=== PATIENT | male | born 1930 | race Caucasian/White ===

== ENCOUNTER → 2016-05-08 | Outpatient (REF) | payer OTHER | LOC: M SMT 13:06 | PROVIDERS: ATTEND Nurse Practitioner Women's Health | DX: N40.1 Benign prostatic hyperplasia with lower urinary tract symptoms (principal) | CPT/HCPCS: 51798; 81001; 87086; G0463 ==

== ENCOUNTER → 2016-07-08 | Day surgery (SDC) | payer OTHER ==
[~2016-07-08] VITALS: Ht 171.4 cm; Wt 90.7 kg
[~2016-07-08] MED LIST: ASPI1TAB PO; BACITRACIN OINT 30GM As Ordered ONE; BUPIVACAINE HCL 0.25% 30 ML VIAL As Ordered ONE; CIAL5TAB PO; FLOM5CAP PO; GLUC850T PO; HYDROmorphone HCL 2 MG/ML 1ML VIAL (J1170) As Ordered ONE; KEFL500C7 PO; LIDOCAINE 1% SDV INJ 30 ML VIAL As Ordered ONE; LIDOCAINE 2% INJ 100 MG/5 ML SDV (FOR ANES.) As Ordered ONE; LR 1,000 ML IV SCH; METF1000 PO; METF500T PO; METO-209 PO; METOCLOPRAMIDE INJ 10MG/2ML VIAL (J2765) IV PRN; MIDAZOLAM INJ 2 MG/2 ML VIAL (J2250) As Ordered ONE; OMEP20CA3 PO; ONDANSETRON 4MG/2ML VIAL (J2405) IV PRN; PERCOCET 5MG/325MG TAB PO PRN; PHENYLephrine HCL 500 MCG/5 ML (100MCG/ML) SYRINGE (J2370) As Ordered ONE; PROPOFOL 200 MG/20 ML VIAL As Ordered ONE; SIMV80TA PO; TEST5GEL TOP; TYLE650T35 PO; ePHEDrine SULFATE 25 MG/5 ML(5MG/ML) SYRINGE As Ordered ONE; fentaNYL 100 MCG/2 ML INJECTION (J3010) As Ordered ONE; fentaNYL 100 MCG/2 ML INJECTION (J3010) IV PRN
[2016-07-08] MEDS: LR 1,000 ML IV SCH ×2 (08:50→08:58)
[2016-07-08 14:00] VITALS: BP 184/82
--- NOTE | 2016-07-09 09:15 | RO ---
DATE OF SURGERY: 07/08/2016 PREOPERATIVE DIAGNOSIS: Phimosis. POSTOPERATIVE DIAGNOSIS: Phimosis. FINDINGS: Phimosis. SURGERY PERFORMED: Circumcision. SURGEON: Justice Huggins MD [employer]: Pedro Eid, PGY3, Resident ANESTHESIA: General. COMPLICATIONS: None. ESTIMATED BLOOD LOSS (EBL): N/A. HISTORY OF PRESENT ILLNESS: An 85-year-old male patient who has a phimosis and cannot retract the skin. For this reason, he has consented for a circumcision. PROCEDURE DESCRIPTION: In a patient under general anesthesia in supine position , after prepping and draping the area of concern, which included the entire genitalia, we placed local penile block with Marcaine 0.25% and lidocaine 1%, a total of 10 mL, around the base of the penis. We then proceeded to actually grab a hemostat and clamp the dorsal part of the foreskin from the tip of the distal end. We then cut and did a dorsal slit to actually retract the foreskin and expose the glans. We then proceeded to clean the glans and the internal foreskin mucosa with Betadine. After this, we actually did a circumferential incision with a cold knife #15 blade 1 cm away from the sulcus of the glans. We then proceeded to actually do a 4 cm proximal to this one toward the base. We actually did another circumferential incision with a cold knife #15 blade and then cut the skin and the foreskin and the foreskin mucosa within both two incisions and excised it with electro Bovie cautery. We then fulgurized all the bleeding vessels and put back together foreskin borders with a chromic 3-0 in separate stitches. We then proceeded to place Bacitracin cream and a Kerlix roll and a Coban. PLAN: The patient will go home with Keflex 500 mg one tablet by mouth every 8 hours and then acetaminophen (Tylenol) 8 hours arthritis 650 mg one tablet by mouth every 8 hours, also. Followup in 3 days for removal of the Coban. MTDD
== END | disposition home or self-care (01) ==
LOC: M SDC 08:23
PROVIDERS: ATTEND Urology
DX: N47.1 Phimosis (principal); N40.1 Benign prostatic hyperplasia with lower urinary tract symptoms; R39.12 Poor urinary stream; N52.9 Male erectile dysfunction, unspecified; E11.9 Type 2 diabetes mellitus without complications; C18.9 Malignant neoplasm of colon, unspecified; I10 Essential (primary) hypertension; E78.5 Hyperlipidemia, unspecified; Z88.2 Allergy status to sulfonamides; Z88.5 Allergy status to narcotic agent; Z88.8 Allergy status to other drugs, medicaments and biological substances; Z79.899 Other long term (current) drug therapy; Z79.82 Long term (current) use of aspirin; Z96.1 Presence of intraocular lens
CPT/HCPCS: 36415; 54161; 86850; 88304; J0690; J1170; J2250; J2370; J2405; J3010

== ENCOUNTER → 2019-05-19 | Outpatient (REF) | payer OTHER ==
[~2019-05-19] MED LIST changes: -ASPI1TAB PO; +ASPI81TA26 PO; -BACITRACIN OINT 30GM As Ordered ONE; -BUPIVACAINE HCL 0.25% 30 ML VIAL As Ordered ONE; +FLOM0.4C39 PO; -FLOM5CAP PO; -HYDROmorphone HCL 2 MG/ML 1ML VIAL (J1170) As Ordered ONE; +KEFL500C17 PO; -KEFL500C7 PO; -LIDOCAINE 1% SDV INJ 30 ML VIAL As Ordered ONE; -LIDOCAINE 2% INJ 100 MG/5 ML SDV (FOR ANES.) As Ordered ONE; -LR 1,000 ML IV SCH; -METF1000 PO; +METF10004 PO; -METF500T PO; +METF500T13 PO; -METO-209 PO; +METO1TAB33 PO; -METOCLOPRAMIDE INJ 10MG/2ML VIAL (J2765) IV PRN; -MIDAZOLAM INJ 2 MG/2 ML VIAL (J2250) As Ordered ONE; +OMEP1CAP73 PO; -OMEP20CA3 PO; -ONDANSETRON 4MG/2ML VIAL (J2405) IV PRN; -PERCOCET 5MG/325MG TAB PO PRN; -PHENYLephrine HCL 500 MCG/5 ML (100MCG/ML) SYRINGE (J2370) As Ordered ONE; -PROPOFOL 200 MG/20 ML VIAL As Ordered ONE; -SIMV80TA PO; +SIMV80TA13 PO; -ePHEDrine SULFATE 25 MG/5 ML(5MG/ML) SYRINGE As Ordered ONE; -fentaNYL 100 MCG/2 ML INJECTION (J3010) As Ordered ONE; -fentaNYL 100 MCG/2 ML INJECTION (J3010) IV PRN
== END ==
LOC: M LAB LCGH 09:46
PROVIDERS: ATTEND Physician Assistant
DX: C44.310 Basal cell carcinoma of skin of unspecified parts of face (principal); C44.41 Basal cell carcinoma of skin of scalp and neck

== ENCOUNTER → 2019-07-19 | Outpatient (REF) | payer MEDICARE | LOC: M LAB REF 09:47 | PROVIDERS: ATTEND Dermatology | DX: C44.41 Basal cell carcinoma of skin of scalp and neck (principal); L90.5 Scar conditions and fibrosis of skin ==

== ENCOUNTER → 2019-10-19 | Outpatient (REF) | payer MEDICARE ==
[~2019-10-19] MED LIST changes: +ACET650T61 PO; -TYLE650T35 PO
== END ==
LOC: M LAB REF 17:18
PROVIDERS: ATTEND Dermatology
DX: C44.519 Basal cell carcinoma of skin of other part of trunk (principal)
CPT/HCPCS: 11102; 17000; 88305; G0463

== ENCOUNTER → 2019-12-28 | Outpatient (REF) | payer MEDICARE ==
[2019-12-28 18:50] LABS: APPEARANCE, URINE HAZY (CLEAR); BACTERIA, URINE AUTO NEGATIVE (NEGATIVE); BILIRUBIN, URINE AUTO NEGATIVE (NEGATIVE); BLOOD, URINE BLOOD NEGATIVE (NEGATIVE); COLOR, URINE AMBER (YELLOW); GLUCOSE, URINE (UA) AUTO NEGATIVE (NEGATIVE); KETONE, URINE AUTO NEGATIVE (NEGATIVE); LEUKOCYTE ESTERASE, URINE AUTO NEGATIVE (NEGATIVE); MUCUS, URINE SMALL (NEGATIVE); NITRITE, URINE AUTO NEGATIVE (NEGATIVE); PROTEIN, URINE AUTO NEGATIVE (NEGATIVE); RBC, URINE AUTO 2 /HPF (0-3); SPECIFIC GRAVITY URINE AUTO 1.019 (1.002-1.035); SQUAMOUS EPITHELIAL CELL UR AU 0 /HPF (0-6); WBC, URINE AUTO 1 /HPF (0-3)
== END ==
LOC: M SMT 17:15
PROVIDERS: ATTEND Nurse Practitioner Family
DX: R35.0 Frequency of micturition (principal)
CPT/HCPCS: 51798; 81000; 81001; 87086; G0463

== ENCOUNTER → 2020-04-24 | Outpatient (CLI) | payer MEDICARE ==
--- NOTE | 2020-04-24 13:18 | REP ---
INDICATION: SMALL KIDNEY, BILATERAL. COMPARISON: None. TECHNIQUE: 8.8 mCi of Technetium-99m MAG3 is injected and sequential posterior flow and excretory phase imaging are acquired. Renal cortical regions of interest are drawn and time activity curves are plotted for renal functional analysis. Pre and postvoid images including the kidneys and bladder were acquired. FINDINGS: Posterior flow study shows generally poor sluggish perfusion of both kidneys, more delayed on the left than the right. Excretory phase images demonstrate that the left kidney is smaller than the right. Renal pelvic labeling is observed on the right at the 3 minutes zan and not observed on the left definitely until the 7 minutes zan post-injection. There is no evidence of obstructive uropathy on either side. Pre and postvoid images including the bladder show no additional finding. Differential renal function analysis is asymmetric with 21.5% of renal cortical counts emanating from the left kidney and 78.5% from the right. Time to peak activity is delayed on the left is 7.0 minutes and near the upper range of normal on the right at 3.0 minutes. Time to half max activity however is delayed bilaterally, greater than 30 minutes on the left, and 18.1 minutes on the right. Relatively flat excretion curves are seen, especially the left. IMPRESSION: Renal size asymmetry, left smaller than right. Sluggish renal perfusion bilaterally, particularly on the left. Delayed excretory function on the left. Relatively flattened excretion curves bilaterally. No evidence of obstructive uropathy. <Electronically signed by Tomas Frost > 04/24/20 [id number]
== END ==
LOC: M RAD 11:55
PROVIDERS: ATTEND Internal Medicine Nephrology
DX: N27.1 Small kidney, bilateral (principal)
CPT/HCPCS: 78707; A9562

== ENCOUNTER → 2020-11-27 | Outpatient (REF) | payer MEDICARE | LOC: M LAB REF 17:38 | PROVIDERS: ATTEND Internal Medicine Nephrology | DX: N18.4 Chronic kidney disease, stage 4 (severe) (principal) ==

== ENCOUNTER → 2021-10-21 | Outpatient (REF) | payer MEDICARE | LOC: M SFHCDERM 14:22 | PROVIDERS: ATTEND Nurse Practitioner Family | DX: C44.329 Squamous cell carcinoma of skin of other parts of face (principal) ==

== ENCOUNTER → 2022-02-13 | Outpatient (REF) | payer MEDICARE | LOC: M SFHCDERM 13:54 | PROVIDERS: ATTEND Dermatology | DX: C44.519 Basal cell carcinoma of skin of other part of trunk (principal) ==